=== PATIENT | female | born 2000 | race Hispanic/Latino ===

== ENCOUNTER 2023-10-09 14:26 | Emergency (ER) | payer MEDICAID ==
[~2023-10-09] VITALS: Ht 152.4 cm; Wt 48.1 kg
[2023-10-09 15:10] LABS: RAPID GROUP A STREP negative (NEGATIVE)
[2023-10-09 15:20] LABS: INFLUENZA TYPE A Negative For Type A (NEGATIVE); INFLUENZA TYPE B Negative For Type B (NEGATIVE)
[2023-10-09 15:44] LABS: COVID19 (SARS ANTIGEN RAPID) POSITIVE FOR SARS AG (NEGATIVE)
[2023-10-09] MEDS ORDERED: MOLN200C PO (15:50)
[2023-10-09] MEDS ORDERED: METH4TAB3 PO (15:50)
[2023-10-09] MEDS ORDERED: BENZ-39 PO (15:50)
[2023-10-09 16:03] VITALS: BP 121/61; PULSE 91; RESP 16; O2SAT 98
== END 2023-10-09 16:03 | disposition home or self-care (01) ==
LOC: EDH 14:26
DX: U07.1 COVID-19 (principal); R05.9 Cough, unspecified
CPT/HCPCS: 87426; 87804; 87880